=== PATIENT | male | born 1980 | race Caucasian/White ===

== ENCOUNTER 2024-04-12 04:50 | Emergency (ER) | payer BC, SELFPAY ==
[2024-04-12 04:51] VITALS: PULSE 73; RESP 18; TEMP 36.6; O2SAT 100; BMI 26.9
--- NOTE | 2024-04-12 05:03 | RAD_ITS ---
INDICATION: fall right shoulder and elbow pain. EXAMINATION/TECHNIQUE: X-RAY - RIGHT XR Shoulder Min 2 Views 4 VIEWS COMPARISON: No relevant prior comparison study available FINDINGS: BONES: No fracture demonstrated. JOINTS: No dislocation. SOFT TISSUES: Unremarkable. RAD/Shoulder min 2 Views IMPRESSION: No evidence of fracture. Electronically Signed: Rylee Dacosta MD at 6:30 EST ,
--- NOTE | 2024-04-12 05:03 | EDS_ITS ---
HPI History of Present Illness Chief Complaint: Upper Extremity Injury Narrative Narrative: Patient is a 43-year-old male with no known significant past medical history who presents to the emergency department with a chief complaint of right shoulder pain. Patient states that last night he was coming down a set of stairs when he fell and attempted to catch himself with his right arm. He states that he took ibuprofen and went to bed. He states that this morning when he woke up he had significant pain therefore he came here for further evaluation management. Patient denies any other pain anywhere else or any other symptoms. PFSH PFSH Medical History no medical history Home Medications ?Medication ?Instructions ?Recorded ?Last Taken ?Type cyclobenzaprine 5 mg tablet 5 mg PO TID PRN muscle spasm 5 04/12/24 Unknown Rx days #15 tabs Allergy/AdvReac Type Severity Reaction Status Date / Time Penicillins Allergy Mild PT UNSURE Verified 04/12/24 04:54 OF REACTION Social History Smoking Status: Current every day smoker tobacco type: smokeless tobacco ROS ROS ED ROS Narrative Constitutional: Denies headaches, lightness, dizziness Neurological: Denies any numbness, weakness, tingling Musculoskeletal: Complains of right shoulder pain as noted above Skin: Denies any rashes or lesions EXAM Physical Exam Narrative Exam Narrative: General: Patient lying in bed rest comfortably did not appear to be acute distress Head: Atraumatic, normocephalic Eyes: PERRL bilateral, EOMI bilateral, no conjunctival injection noted Neck: Soft, supple, trach midline Cardiovascular: Regular in rhythm Respiratory: Clear to auscultation bilaterally Abdomen: No tenderness palpation Musculoskeletal: Patient has tenderness palpation of the right shoulder and right elbow. All of the bony prominences and joints taken through full range of motion no pain elicited Extremities: Radial pulses +2/4 in the bilateral extremities, +5/5 strength noted in the bilateral upper and lower extremities Neurological: Patient following commands knew that he was at [facility] years 2023. Sensation grossly intact in the median, ulnar and radial nerve distributions as well as the axillary nerve distribution bilaterally Skin: Warm, dry, intact Const Vital Signs: 04/12/24 04:51 Temperature 97.8 F Temperature Source Oral Pulse Rate 73 Respiratory Rate 18 Pulse Ox 100 Oxygen Delivery Method Room Air MDM MDM MDM Narrative Medical decision making narrative: Patient is a 43-year-old male who presents to the emerged part with a chief complaint of right upper extremity pain after fall. Patient will have a workup performed here on the differential diagnose includes but not limited to proximal humerus fracture, midshaft humerus fracture, rotator cuff tear, musculoskeletal contusion. Once workup is obtained reviewed he will be reevaluated. Patient's x-ray of his right shoulder was reviewed by myself and by radiology showed no acute fracture or dislocation. Patient's x-ray of his right elbow showed no evidence of acute fracture or dislocation. Did discuss results with the patient he would like to go home at this point time. Patient is requesting prescription for muscle relaxer which was sent to his pharmacy he was advised to rotate Tylenol and ibuprofen [id number]. He is encouraged to follow-up with his primary care physician outpatient setting. I did offer a sling for comfort and he states that he does not need 1 at this p oint time. He is encouraged return with worsening symptoms or other concerns. Discharge Plan Triage Chief Complaint: Upper Extremity Injury ED Provider: Gentry Borjas Dx/Rx/DC Orders Clinical Impression: Acute pain of right shoulder Prescriptions: New cyclobenzaprine 5 mg tablet 5 mg PO TID PRN (Reason: muscle spasm) 5 Days Qty: 15 0RF Primary Care Provider: Arin Velasco Referrals: Arin Velasco, [employer] [Primary Care Provider] - Activity Restrictions/Additional Instructions: Ice, rotate Tylenol and ibuprofen [id number]. Use muscle relaxers as prescribed do not operate anything under the influence of this medication as it will make you drowsy. Return with worsening symptoms or other concerns otherwise follow-up with your primary care physician. Print Language: Armenian Disposition Disposition: Home, Self Care
--- NOTE | 2024-04-12 05:20 | RAD_ITS ---
INDICATION: fall right shoulder and elbow pain. EXAMINATION/TECHNIQUE: X-RAY - RIGHT XR Elbow Min 3 Views COMPARISON: No relevant prior comparison study available FINDINGS: BONES: No fracture demonstrated. JOINTS: No dislocation. SOFT TISSUES: Unremarkable. RAD/Elbow min 3 Views IMPRESSION: No evidence of fracture. Electronically Signed: Rylee Dacosta MD at 6:31 EST ,
== END 2024-04-12 06:48 | disposition home or self-care (01) ==
PROVIDERS: Emergency Provider Emergency Medicine; PCP Nurse Practitioner Family; Visit Provider Emergency Medicine
DX: M25.511 Pain in right shoulder (principal); W10.9XXA Fall (on) (from) unspecified stairs and steps, initial encounter; Z88.0 Allergy status to penicillin; F17.290 Nicotine dependence, other tobacco product, uncomplicated
CPT/HCPCS: 73030; 73080; 99282